=== PATIENT | female | born 1965 | race Caucasian/White ===

== ENCOUNTER → 2021-04-07 | Outpatient (CLI) | payer MEDICARE, OTHER ==
[~2021-04-07] MED LIST: AUGMENTIN 875-1 EACH PO; BACTROBAN OINT22 GM EXT; FERROUS SULFAT325 MG PO; FOLIC ACID 1 MG1 MG PO; LISINOPRIL10 MG PO; MECLIZINE HCL25 MG PO; OMNICEF 300 MG300 MG PO; ONDANSETRON ODT4 MG SL; PYRIDIUM200 MG PO; ULTRAM50 MG PO; ZOFRAN4 MG PO
== END ==
LOC: EMI 15:39
DX: M54.5 Low back pain (principal); M51.24 Other intervertebral disc displacement, thoracic region; M47.814 Spondylosis without myelopathy or radiculopathy, thoracic region; M51.26 Other intervertebral disc displacement, lumbar region; M47.816 Spondylosis without myelopathy or radiculopathy, lumbar region; M48.061 Spinal stenosis, lumbar region without neurogenic claudication; M47.817 Spondylosis without myelopathy or radiculopathy, lumbosacral region
CPT/HCPCS: 72148

== ENCOUNTER 2021-05-13 12:36 | Emergency (ER) | payer MEDICARE, OTHER ==
[~2021-05-13 12:36] MED LIST changes: -LISINOPRIL10 MG PO; -MECLIZINE HCL25 MG PO; -ONDANSETRON ODT4 MG SL
[2021-05-13 13:56] LABS: HEMOGLOBIN 13.8 gm/dl (12.3-15.3); RED BLOOD COUNT 3.96 M/UL (4.00-5.10); WHITE BLOOD COUNT 10.7 K/UL (4.5-11.0)
[2021-05-13 14:22] LABS: BUN/CREATININE RATIO 21 (0-10)
[2021-05-13] MEDS ORDERED: LISINOPRIL10 MG PO (16:10)
[2021-05-13] MEDS ORDERED: MECLIZINE HCL25 MG PO (16:10)
[2021-05-13] MEDS ORDERED: ONDANSETRON ODT4 MG SL (16:10)
== END 2021-05-13 16:15 | disposition home or self-care (01) ==
LOC: ER1 12:36
PROVIDERS: Physician Assistant
DX: R42 Dizziness and giddiness (principal); R51.9 Headache, unspecified; R74.01 Elevation of levels of liver transaminase levels; I10 Essential (primary) hypertension; K21.9 Gastro-esophageal reflux disease without esophagitis; F17.200 Nicotine dependence, unspecified, uncomplicated; Z86.13 Personal history of malaria; Z90.49 Acquired absence of other specified parts of digestive tract; Z90.710 Acquired absence of both cervix and uterus; Z79.899 Other long term (current) drug therapy
CPT/HCPCS: 70450; 80053; 81001; 84484; 85025; 93005; 96374; 96375; 99284; J1885; J2765

== ENCOUNTER → 2022-01-12 | Outpatient (CLI) | payer MEDICARE ==
[~2022-01-12] MED LIST changes: +LISINOPRIL10 MG PO; +MECLIZINE HCL25 MG PO; +ONDANSETRON ODT4 MG SL
== END ==
LOC: KOH-I 09:58
DX: M54.50 Low back pain, unspecified (principal); M47.816 Spondylosis without myelopathy or radiculopathy, lumbar region
CPT/HCPCS: 72100

== ENCOUNTER → 2022-02-14 | Outpatient (CLI) | payer MEDICARE, OTHER | LOC: KOH-I 01-25 09:45 | DX: S32.000S Wedge compression fracture of unspecified lumbar vertebra, sequela (principal); M51.36 Other intervertebral disc degeneration, lumbar region | CPT/HCPCS: 72148 ==